=== PATIENT | male | born 1985 | race African-American/Black ===

== ENCOUNTER 2017-12-03 10:43 | Emergency (ER) | payer OTHER ==
[~2017-12-03] VITALS: Ht 175.3 cm; Wt 72.6 kg
--- NOTE | 2017-12-03 10:50 | NUR ---
PATIENT TO ED DT WORSENING FEELINGS OF ANGER, INTENT OF VERBALLY AND PHYSICALLY ABUSING OTHER. PATIENT DENIES SI. SKIN IS WARM TO TOUCH AND NON DIAPHORETIC,. PATIENT IS AFEBRILE. VSS
--- NOTE | 2017-12-03 11:23 | NUR ---
NAOMIE ALONSO AT BEDSIDE
[2017-12-03 11:28] LABS: BASOPHILS % (AUTO) 0.7 % (0.0-2.0); EOSINOPHILS % (AUTO) 1.9 % (0.0-6.0); HEMATOCRIT 46 % (39-51); HEMOGLOBIN 15.7 g/dL (13.5-17.5); LYMPHOCYTES # (AUTO) 1.6 /CMM (0.8-4.8); LYMPHOCYTES % (AUTO) 33.5 % (20.0-44.0); MEAN CORPUSCULAR HGB CONC 34 g/dl (31.0-36.0); MEAN CORPUSCULAR VOLUME 86 fL (80-96); MONOCYTES # (AUTO) 0.3 /CMM (0.1-1.30); MONOCYTES % (AUTO) 5.3 % (2.0-12.0); NEUTROPHILS # (AUTO) 2.9 /CMM (1.8-8.9); NEUTROPHILS % (AUTO) 58.6 % (43.0-81.0); PLATELET COUNT (AUTO) 132 /CMM (150-450); RDW COEFFICIENT OF VARIATION 11.9 (11.5-15.0); RED BLOOD CELL COUNT(AUTO) 5.34 MIL/uL (4.5-6.0); WHITE BLOOD COUNT (AUTO) 4.9 K/uL (4.3-11.0)
[2017-12-03 11:36] LABS: CALCIUM, SERUM 9.5 mg/dL (8.5-10.1); CARBON DIOXIDE 31 mmol/L (21-32); CHLORIDE 106 mmol/L (98-107); CREATININE 1.1 mg/dL (0.6-1.3); GLUCOSE 88 mg/dL (74-106); POTASSIUM 4.3 mmol/L (3.5-5.1); SODIUM SERUM 141 mmol/L (136-145); UREA NITROGEN, BLOOD 15 mg/dL (7-18)
[2017-12-03 11:49] LABS: ALANINE AMINOTRANSFERASE 19 U/L (12-78); ALBUMIN 4.3 g/dL (3.4-5.0); ALKALINE PHOSPHATASE 55 U/L (46-116); ASPARTATE AMINOTRANSFERASE 22 U/L (15-37); BILIRUBIN,DIRECT 0.2 mg/dL (0.0-0.2); BILIRUBIN,TOTAL 1.1 mg/dL (0.2-1.0); TOTAL PROTEIN, SERUM 7.5 g/dL (6.4-8.2)
[2017-12-03 11:50] LABS: ACETAMINOPHEN < 2 ug/ml (10-30); ALCOHOL, BLOOD < 3 mg/dL (0-0); SALICYLATE 1.7 mg/dL (2.8-20.0)
[2017-12-03 12:34] LABS: APPEARANCE,URINE Clear (CLEAR); BILIRUBIN,URINE SMALL (NEGATIVE); BLOOD, URINE Trace-intact Ery/uL (NEGATIVE); COLOR,URINE Yellow (YELLOW); KETONES,URINE Negative (NEGATIVE); LEUKOCYTE ESTERASE ,URINE Negative (NEGATIVE); NITRITE, URINE Negative (NEGATIVE); PH,URINE 6.5 (5.0-8.0); PROTEIN,URINE 30 mg/dl (NEGATIVE); UGLUCOSE Negative (NEGATIVE)
[2017-12-03 12:39] LABS: BACTERIA,URINE Rare /HPF (None Seen); SQUAMOUS EPITHELIAL CELL,UR Few /HPF (None Seen); WBC,URINE 0-2 /HPF (0-3)
--- NOTE | 2017-12-03 17:18 | NUR ---
ESEQUIEL CALLED IN REGARDS TO PT TRANSFER - INFORMED THAT I SPOKE WITH LOS AT 1620 - STILL WAITING ON BED FROM [facility]
--- NOTE | 2017-12-03 17:39 | NUR ---
CALLED FOR MEAL TRAY - REGULAR DIET
--- NOTE | 2017-12-03 21:07 | NUR ---
SPOKE TO CHARGE NURSE RN DANAE, FROM [facility] REGARDING TOX URINE RESULTS. PER DANAE TO CALL BACK AT 9:30PM FOR NURSE TO NURSE REPORT THEN WILL ASSIGN A BED.
--- NOTE | 2017-12-03 21:48 | NUR ---
SPOKE TO GAVIN GARCIA FROM [facility]. [address]
--- NOTE | 2017-12-03 21:59 | NUR ---
SET UP BLS RIG WITH SAVANNAH ALATORRE [id number] - TRIP# [id number]
--- NOTE | 2017-12-03 22:15 | NUR ---
ETA UPDATED TO MIDNIGHT
[2017-12-03 23:41] VITALS: BP 138/88
--- NOTE | 2017-12-03 23:43 | NUR ---
REPORT GIVEN TO EMT FROM [place] [id number] FOR ADITYA. PT AWARE OF TRANSFER. PT WITH ALL PERSONAL BELONGINGS. PT VSS. EMT WITH ALL TRANSFER PAPERS. PT TO BE TRANSFERRED VIA [facility] TO [facility].
== END 2017-12-03 23:47 | disposition short-term general hospital (02) ==
LOC: ER 10:46
DX: F23 Brief psychotic disorder (principal); F17.200 Nicotine dependence, unspecified, uncomplicated; Z60.2 Problems related to living alone
CPT/HCPCS: 36415; 80048-TC; 80076-TC; 80305; 81000-TC; 85025-TC; A4606; G0480; J7030; Z7610

== ENCOUNTER 2018-01-31 19:29 | Emergency (ER) | payer OTHER ==
[~2018-01-31] VITALS: Ht 175.3 cm; Wt 72.6 kg
[2018-01-31 19:50] VITALS: BP 129/81
[2018-01-31 21:16] LABS: APPEARANCE,URINE Slightly Cloudy (CLEAR); BILIRUBIN,URINE SMALL (NEGATIVE); BLOOD, URINE Moderate Ery/uL (NEGATIVE); COLOR,URINE Amber (YELLOW); KETONES,URINE Negative (NEGATIVE); LEUKOCYTE ESTERASE ,URINE Negative (NEGATIVE); NITRITE, URINE Negative (NEGATIVE); PROTEIN,URINE 30 mg/dl (NEGATIVE); UGLUCOSE Negative (NEGATIVE)
[2018-01-31 21:23] LABS: RBC,URINE 51-80 /HPF (0-2); WBC,URINE 0-2 /HPF (0-3)
[2018-01-31 21:24] LABS: BACTERIA,URINE Few /HPF (None Seen); SQUAMOUS EPITHELIAL CELL,UR Few /HPF (None Seen)
== END 2018-01-31 21:34 | disposition home or self-care (01) ==
LOC: ER 19:30
DX: N50.812 Left testicular pain (principal); N50.811 Right testicular pain; F12.90 Cannabis use, unspecified, uncomplicated; Z60.2 Problems related to living alone
CPT/HCPCS: 81000-TC; A4606; Z7610

== ENCOUNTER → 2019-10-27 | Emergency (ER) | payer OTHER ==
[~2019-10-27] VITALS: Ht 175.3 cm; Wt 72.6 kg
[~2019-10-27] MED LIST: LORAZEPAM 1 MG TABLET ONE; LORAZEPAM 1 MG TABLET PO ONE
--- NOTE | 2019-10-27 01:15 | NUR ---
PT BIBRA FOR PSYCH EVAL. PT CALM AND COOPERATIVE. PT AAOX4, VSS, RESPIRATIONS EVEN AND UNLABORED ON RA W/ NAD NOTED. PT CONNECTED TO THE MONITOR AND POX
[2019-10-27 01:46] LABS: BASOPHILS % (AUTO) 0.3 % (0.0-2.0); HEMATOCRIT 44 % (39-51); HEMOGLOBIN 15.2 g/dL (13.5-17.5); LYMPHOCYTES # (AUTO) 1.8 /CMM (0.8-4.8); LYMPHOCYTES % (AUTO) 19.2 % (20.0-44.0); MEAN CORPUSCULAR HGB CONC 34 g/dl (31.0-36.0); MEAN CORPUSCULAR VOLUME 88 fL (80-96); MONOCYTES # (AUTO) 0.5 /CMM (0.1-1.30); MONOCYTES % (AUTO) 5.5 % (2.0-12.0); NEUTROPHILS # (AUTO) 7.2 /CMM (1.8-8.9); PLATELET COUNT (AUTO) 141 /CMM (150-450); RED BLOOD CELL COUNT(AUTO) 5.03 MIL/uL (4.5-6.0); WHITE BLOOD COUNT (AUTO) 9.6 K/uL (4.3-11.0)
[2019-10-27 02:11] LABS: CALCIUM, SERUM 9.2 mg/dL (8.5-10.1); CREATININE 1.3 mg/dL (0.6-1.3); POTASSIUM 3.4 mmol/L (3.5-5.1)
[2019-10-27 02:22] LABS: ALBUMIN 4.4 g/dL (3.4-5.0); BILIRUBIN,DIRECT 0.4 mg/dL (0.0-0.2); BILIRUBIN,TOTAL 1.6 mg/dL (0.2-1.0); TOTAL PROTEIN, SERUM 7.6 g/dL (6.4-8.2)
--- NOTE | 2019-10-27 03:00 | NUR ---
PT RESTING COMFORTABLY IN BED. VSS. NO ACUTE DISTRESS NOTED. WILL CONTINUE TO MONITOR
[2019-10-27 06:04] VITALS: BP 112/68
--- NOTE | 2019-10-27 06:04 | NUR ---
PT RESTING COMFORTABLY IN BED. VSS. NO ACUTE DISTRESS NOTED. WILL CONTINUE TO MONITOR
--- NOTE | 2019-10-27 07:03 | NUR ---
PATIENT REFUSING VITAL SIGNS, ASKING FOR PAIN MEDICATIONS.
--- NOTE | 2019-10-27 07:06 | NUR ---
PATIENT IS ASKING FOR PAIN MEDICATION. PATIENT IS RUDE AND CURSING AT MORE THAN ONE NURSING STAFF. PATIENT USING "N" WORD AND DEGRADING STAFF. PATIENT IS AMBULATORY.
--- NOTE | 2019-10-27 07:22 | NUR ---
PATIENT IS ESCORTED BY SECURITY.
== END | disposition home or self-care (01) ==
LOC: ER 01:11
DX: F15.10 Other stimulant abuse, uncomplicated (principal); G47.00 Insomnia, unspecified; R07.89 Other chest pain; R94.31 Abnormal electrocardiogram [ECG] [EKG]; F20.9 Schizophrenia, unspecified; F17.200 Nicotine dependence, unspecified, uncomplicated; Z60.2 Problems related to living alone
CPT/HCPCS: 36415; 71045-TC; 80048-TC; 80076-TC; 83735-TC; 84484-TC; 85025-TC

== ENCOUNTER 2019-11-24 01:00 | Emergency (ER) | payer OTHER ==
[~2019-11-24] VITALS: Ht 175.3 cm; Wt 72.6 kg
--- NOTE | 2019-11-24 01:04 | NUR ---
TO ER BED 14 AMBULATORY C/O SI WITH PLAN TO SLICE WRIST WITH A KNIFE. HEARING VOICES TELLING ME TO KILL MYSELF. ADMITS TO METH USE YESTERDAY. PT CALM AND COOPERATIVE. PLACE PT ON HOSPITAL GOWN, ALL BELONGINGS PLACE IN PT BELONGING BAGS AND PLACED IN LOCKED HOSPITAL LOCKER. 1:1 SITTER AT BEDSIDE FOR PT SAFETY.
--- NOTE | 2019-11-24 01:05 | NUR ---
URINE SAMPLE COLLECTED AND SENT TO LAB.
[2019-11-24 01:28] LABS: APPEARANCE,URINE Clear (CLEAR); BILIRUBIN,URINE Negative (NEGATIVE); BLOOD, URINE Trace-lysed Ery/uL (NEGATIVE); COLOR,URINE Amber (YELLOW); KETONES,URINE Trace (NEGATIVE); LEUKOCYTE ESTERASE ,URINE Negative (NEGATIVE); NITRITE, URINE Negative (NEGATIVE); PROTEIN,URINE 30 mg/dl (NEGATIVE); UGLUCOSE Negative (NEGATIVE)
[2019-11-24] MEDS ORDERED: OLANZAPINE 5 MG TABLET PO ONE (01:30)
--- NOTE | 2019-11-24 01:31 | NUR ---
BIOASSAYIST AT BEDSIDE FOR BLOOD DRAW.
[2019-11-24 01:34] LABS: BASOPHILS # (AUTO) 0.1 /CMM (0.0-0.2); BASOPHILS % (AUTO) 1.2 % (0.0-2.0); EOSINOPHILS % (AUTO) 8.8 % (0.0-6.0); HEMATOCRIT 47 % (39-51); HEMOGLOBIN 16.1 g/dL (13.5-17.5); LYMPHOCYTES # (AUTO) 3.3 /CMM (0.8-4.8); LYMPHOCYTES % (AUTO) 49.2 % (20.0-44.0); MEAN CORPUSCULAR HGB CONC 34 g/dl (31.0-36.0); MEAN CORPUSCULAR VOLUME 87 fL (80-96); MONOCYTES # (AUTO) 0.4 /CMM (0.1-1.30); MONOCYTES % (AUTO) 6.6 % (2.0-12.0); NEUTROPHILS # (AUTO) 2.3 /CMM (1.8-8.9); NEUTROPHILS % (AUTO) 34.2 % (43.0-81.0); PLATELET COUNT (AUTO) 153 /CMM (150-450); RED BLOOD CELL COUNT(AUTO) 5.41 MIL/uL (4.5-6.0); WHITE BLOOD COUNT (AUTO) 6.7 K/uL (4.3-11.0)
[2019-11-24 01:41] LABS: CALCIUM, SERUM 9.2 mg/dL (8.5-10.1); CREATININE 1.3 mg/dL (0.6-1.3); POTASSIUM 3.2 mmol/L (3.5-5.1)
[2019-11-24] MEDS ORDERED: OLANZAPINE 5 MG TABLET ONE (01:51)
[2019-11-24 01:53] LABS: ALBUMIN 4.5 g/dL (3.4-5.0); BILIRUBIN,DIRECT 0.2 mg/dL (0.0-0.2); BILIRUBIN,TOTAL 0.6 mg/dL (0.2-1.0); TOTAL PROTEIN, SERUM 7.9 g/dL (6.4-8.2)
[2019-11-24 02:05] LABS: SALICYLATE 1.9 mg/dL (2.8-20.0)
[2019-11-24 02:05] LABS: BACTERIA,URINE None seen /HPF (None Seen); MUCUS,URINE Many /LPF (None Seen); RBC,URINE 0-2 /HPF (0-2); SQUAMOUS EPITHELIAL CELL,UR Few /HPF (None Seen); WBC,URINE 0-2 /HPF (0-3)
--- NOTE | 2019-11-24 02:42 | NUR ---
patient asleep. vss.
--- NOTE | 2019-11-24 03:15 | NUR ---
Call from [facility] intake. Unable to accept patient until K normal. Dr viramontes notified
[2019-11-24] MEDS ORDERED: POTASSIUM CHLORIDE 20 MEQ TAB.PRT.SR PO ONE ×2 (03:30→04:14)
--- NOTE | 2019-11-24 04:49 | NUR ---
Patient is resting comfortably in bed with eyes closed. Easily aroused. VSS.
--- NOTE | 2019-11-24 05:59 | NUR ---
PT RESTING COMFORTABLY. VSS.
--- NOTE | 2019-11-24 06:14 | NUR ---
Pt accepted to [facility] by Dr Israel. Unit 2. # for report [phone]. [facility] ETA 30 minutes.
[2019-11-24 07:01] VITALS: BP 109/78
--- NOTE | 2019-11-24 07:12 | NUR ---
REPORT GIVEN TO ISIDORO ALONSO FOR ADITYA AND REPORT GIVEN TO PRIMER 38.
== END 2019-11-24 07:17 ==
LOC: ER 01:02
DX: R45.851 Suicidal ideations (principal); R44.0 Auditory hallucinations; F19.10 Other psychoactive substance abuse, uncomplicated; Z60.2 Problems related to living alone
CPT/HCPCS: 36415; 80048; 80076; 80305; 80307; 80329; 81001; 85025; 99285; G0480; 81000-TC

== ENCOUNTER 2019-12-02 22:30 | Emergency (ER) | payer OTHER ==
[~2019-12-02] VITALS: Ht 175.3 cm; Wt 72.6 kg
--- NOTE | 2019-12-02 22:50 | NUR ---
BIBS AND AMBULATORY TO BED 9. PT ALERTAND RESPONSIVE. NAD. C/O HEARING ALL KIND OF VOICES FOR THE PAST FEW DAYS. PT REFUSED SI HOWEVER STATED HE MAY HURT OTHERS. PT WAS PLACED ON A FULL SI PRECAUTION. UNDER SUPERVISION OF A SITTER. URINE COLLECTED. KEPT PT WARM AND COMFORTABLE. WILL CONT TO MONITOR ,
--- NOTE | 2019-12-02 22:57 | NUR ---
AT THE BED SIDE
[2019-12-02 23:14] LABS: APPEARANCE,URINE Clear (CLEAR); BILIRUBIN,URINE SMALL (NEGATIVE); BLOOD, URINE Moderate Ery/uL (NEGATIVE); COLOR,URINE Yellow (YELLOW); KETONES,URINE 15 (NEGATIVE); LEUKOCYTE ESTERASE ,URINE Negative (NEGATIVE); NITRITE, URINE Negative (NEGATIVE); PH,URINE 5.5 (5.0-8.0); PROTEIN,URINE Negative (NEGATIVE); UGLUCOSE Negative (NEGATIVE); UROBILINOGEN,URINE 0.2 EU/dL (0.2)
[2019-12-02 23:16] LABS: BASOPHILS # (AUTO) 0.1 /CMM (0.0-0.2); BASOPHILS % (AUTO) 1.5 % (0.0-2.0); EOSINOPHILS % (AUTO) 2.1 % (0.0-6.0); HEMATOCRIT 46 % (39-51); HEMOGLOBIN 15.7 g/dL (13.5-17.5); LYMPHOCYTES # (AUTO) 1.8 /CMM (0.8-4.8); LYMPHOCYTES % (AUTO) 24.3 % (20.0-44.0); MEAN CORPUSCULAR HGB CONC 34 g/dl (31.0-36.0); MEAN CORPUSCULAR VOLUME 89 fL (80-96); MONOCYTES # (AUTO) 0.4 /CMM (0.1-1.30); MONOCYTES % (AUTO) 5.7 % (2.0-12.0); NEUTROPHILS # (AUTO) 4.9 /CMM (1.8-8.9); NEUTROPHILS % (AUTO) 66.4 % (43.0-81.0); PLATELET COUNT (AUTO) 164 /CMM (150-450); RED BLOOD CELL COUNT(AUTO) 5.25 MIL/uL (4.5-6.0); WHITE BLOOD COUNT (AUTO) 7.4 K/uL (4.3-11.0)
[2019-12-02 23:22] LABS: CALCIUM, SERUM 9.1 mg/dL (8.5-10.1); CARBON DIOXIDE 34 mmol/L (21-32); CHLORIDE 104 mmol/L (98-107); CREATININE 1.2 mg/dL (0.6-1.3); GLUCOSE 109 mg/dL (74-106); POTASSIUM 3.4 mmol/L (3.5-5.1); SODIUM SERUM 141 mmol/L (136-145); UREA NITROGEN, BLOOD 15 mg/dL (7-18)
[2019-12-02 23:27] LABS: ALANINE AMINOTRANSFERASE 32 U/L (12-78); ALBUMIN 4.3 g/dL (3.4-5.0); ALCOHOL, BLOOD < 3 mg/dL (0-0); ALKALINE PHOSPHATASE 60 U/L (46-116); ASPARTATE AMINOTRANSFERASE 26 U/L (15-37); BILIRUBIN,DIRECT 0.2 mg/dL (0.0-0.2); BILIRUBIN,TOTAL 0.7 mg/dL (0.2-1.0); TOTAL PROTEIN, SERUM 7.4 g/dL (6.4-8.2)
[2019-12-02 23:28] LABS: ACETAMINOPHEN 0 ug/ml (10-30); SALICYLATE 1.1 mg/dL (2.8-20.0)
[2019-12-03 00:07] LABS: BACTERIA,URINE Few /HPF (None Seen); MUCUS,URINE Moderate /LPF (None Seen); SQUAMOUS EPITHELIAL CELL,UR Rare /HPF (None Seen); WBC,URINE 0-2 /HPF (0-3)
--- NOTE | 2019-12-03 02:23 | NUR ---
Patient is resting comfortably in bed with eyes closed. Easily aroused. VSS. Will cont to monitor,
--- NOTE | 2019-12-03 03:52 | NUR ---
PATIENT IS SLEEPING. PT IS AROUSABLE THROUGH TACTILE AND VERBAL STIMULI. CONNECTED TO MONITOR. SITTER AT BEDSIDE.
--- NOTE | 2019-12-03 05:37 | NUR ---
PT RESTING COMFORTABLY IN BED. VITAL SIGNS STABLE. SITTER AT BEDSIDE. WILL CONTINUE TO MONITOR
--- NOTE | 2019-12-03 08:35 | NUR ---
CALLED SAYRA FOR EVAL AND PLACEMENT.
--- NOTE | 2019-12-03 08:52 | NUR ---
TRU contacted Chucky at [facility] to initiate voluntary hospitalization. Per Chucky, they will have a bed for the pt. TRU faxed clinicals to [facility] intake dept.
--- NOTE | 2019-12-03 09:45 | NUR ---
TRU followed up with Christina at [facility] intake and was informed pt has been referred to [facility] nursing supervisor benzene refining since pt is on the "do not admit" list at [place]. Clinicals are being reviewed at this time. Christina to f/u with SW once pt is accepted. DIRECTOR OF PHYSICAL SECURITY updated ED CRN Gener.
--- NOTE | 2019-12-03 12:50 | NUR ---
BENCH REPAIR TECHNICIAN was informed by Christina at [facility] intake, pt has been accepted at [facility]. Call report after 3PM [phone]. Accepting Dr. Israel/Dr. Russell. updated ELE Bhatti in ED.
--- NOTE | 2019-12-03 13:18 | NUR ---
PT STATED HE IS NOT SUICIDAL AND WANTS TO BE DISCHARGE. MD AWARE.
--- NOTE | 2019-12-03 13:26 | NUR ---
PT DENIES SI/HI. DR STODDARD MADE AWARE. MEDICALLY CLEARED. VERBALLY DISCHARGE FROM ED. STABLE CONDITION.
[2019-12-03 13:31] VITALS: BP 117/66
== END 2019-12-03 13:31 | disposition home or self-care (01) ==
LOC: ER 22:32
DX: F19.10 Other psychoactive substance abuse, uncomplicated (principal); R45.850 Homicidal ideations; R44.1 Visual hallucinations
CPT/HCPCS: 36415; 80048; 80076; 80305; 80307; 80329; 81001; 85025; 99285; G0480; 81000-TC

== ENCOUNTER 2019-12-05 21:57 | Emergency (ER) | payer OTHER ==
[~2019-12-05] VITALS: Ht 175.3 cm; Wt 72.6 kg
--- NOTE | 2019-12-05 22:39 | NUR ---
PT BIBSELF STATES HEARING VOICES "THE VOCIES ARE TELLING ME TO HURT MOTHER FUCKERS" DENIES SIPT AOX4 RR EVEN AND UNLABORED. NO SOB NOTED. NO NVD AT THIS TIME. NO ACUTE DISTRESS NOTED. PT WAITING FOR MD DUQUE.
--- NOTE | 2019-12-05 22:40 | NUR ---
URINE COLLECTED. SENT TO LAB
--- NOTE | 2019-12-05 22:50 | NUR ---
BED MACHINE OPERATOR AT BEDSIDE FOR BLOOD DRAW
[2019-12-05] MEDS ORDERED: OLANZAPINE 5 MG TABLET ONE (22:51)
[2019-12-05 22:53] LABS: APPEARANCE,URINE Clear (CLEAR); BILIRUBIN,URINE Negative (NEGATIVE); BLOOD, URINE Trace-lysed Ery/uL (NEGATIVE); COLOR,URINE Dark (YELLOW); KETONES,URINE Trace (NEGATIVE); LEUKOCYTE ESTERASE ,URINE Negative (NEGATIVE); NITRITE, URINE Negative (NEGATIVE); PROTEIN,URINE 30 mg/dl (NEGATIVE); UGLUCOSE Negative (NEGATIVE)
[2019-12-05] MEDS ORDERED: OLANZAPINE 5 MG TABLET PO ONE (23:00)
[2019-12-05 23:01] LABS: BASOPHILS # (AUTO) 0.1 /CMM (0.0-0.2); BASOPHILS % (AUTO) 0.9 % (0.0-2.0); EOSINOPHILS % (AUTO) 6.8 % (0.0-6.0); HEMATOCRIT 49 % (39-51); HEMOGLOBIN 16.6 g/dL (13.5-17.5); LYMPHOCYTES # (AUTO) 2.2 /CMM (0.8-4.8); LYMPHOCYTES % (AUTO) 35.2 % (20.0-44.0); MEAN CORPUSCULAR HGB CONC 34 g/dl (31.0-36.0); MEAN CORPUSCULAR VOLUME 89 fL (80-96); MONOCYTES # (AUTO) 0.4 /CMM (0.1-1.30); MONOCYTES % (AUTO) 5.6 % (2.0-12.0); NEUTROPHILS # (AUTO) 3.2 /CMM (1.8-8.9); NEUTROPHILS % (AUTO) 51.5 % (43.0-81.0); PLATELET COUNT (AUTO) 178 /CMM (150-450); WHITE BLOOD COUNT (AUTO) 6.2 K/uL (4.3-11.0)
[2019-12-05 23:07] LABS: BACTERIA,URINE Few /HPF (None Seen); MUCUS,URINE Many /LPF (None Seen); SQUAMOUS EPITHELIAL CELL,UR Rare /HPF (None Seen)
[2019-12-05 23:08] LABS: CALCIUM, SERUM 9.2 mg/dL (8.5-10.1); CARBON DIOXIDE 35 mmol/L (21-32); CHLORIDE 101 mmol/L (98-107); CREATININE 1.4 mg/dL (0.6-1.3); GLUCOSE 92 mg/dL (74-106); POTASSIUM 3.7 mmol/L (3.5-5.1); SODIUM SERUM 140 mmol/L (136-145); UREA NITROGEN, BLOOD 18 mg/dL (7-18)
[2019-12-05 23:13] LABS: ACETAMINOPHEN 1 ug/ml (10-30); ALANINE AMINOTRANSFERASE 29 U/L (12-78); ALBUMIN 4.6 g/dL (3.4-5.0); ALCOHOL, BLOOD < 3 mg/dL (0-0); ALKALINE PHOSPHATASE 67 U/L (46-116); ASPARTATE AMINOTRANSFERASE 22 U/L (15-37); BILIRUBIN,DIRECT 0.1 mg/dL (0.0-0.2); BILIRUBIN,TOTAL 0.5 mg/dL (0.2-1.0)
[2019-12-05 23:14] LABS: SALICYLATE 2.1 mg/dL (2.8-20.0)
--- NOTE | 2019-12-06 04:32 | NUR ---
accepted at [facility]. : Dr. logan Report: [phone] ext [phone] or [phone] per [facility] intake to give report after 9am.
--- NOTE | 2019-12-06 04:43 | NUR ---
PT RESTING COMFORTABLY IN BED. VITAL SIGNS STABLE. SITTER AT BEDSIDE. WILL CONTINUE TO MONITOR
--- NOTE | 2019-12-06 05:42 | NUR ---
CALLED CALL THE CAR FOR TRANSPOTATION. RESERVATION #[id number] [facility] ETA 1100
--- NOTE | 2019-12-06 09:40 | NUR ---
Patient asleep but arousable non distress @ this time continue to monitor
--- NOTE | 2019-12-06 10:08 | NUR ---
ARYA CALLED FROM [facility] ROOM [address]-B ACCEPTING MD IS HEIDI. PLEASE CALL [phone] FOR REPORT. TY
--- NOTE | 2019-12-06 10:17 | NUR ---
Kennel Keeper Consult was requested by Emergency Room staff for this pt who states he has hallucinations. Pt is a 34 year old male who brought himself to the Emergency Room stating that he has been hearing voices telling him to hurt other people. Pt appeared to be in a depressed mood and presented with an agitated affect. Pt stated that he was feeling frustrated that everyone in the Emergency Room has been asking him the same questions. Pt stated that he is not homeless and in fact lives in an apartment in [place] with his kitten. SW asked if anyone else lives with him and he stated that someone does but they are not there at the moment. SW asked him who lives with him and the pt stated that the SW was asking too many personal questions. Pt stated that he has a sister who is his support system. Pt expressed his concern with these voices in his head and states that he does feel nervous that he will hurt someone. Pt agreed to be voluntarily admitted to a psychiatric hospital. Plan: Pt was accepted to [facility] in [place] and will be discharged there at around 1100 on a voluntary hold.
--- NOTE | 2019-12-06 11:12 | NUR ---
PEBBLES CALLED FROM [facility] NEW ETA IS 30 MINS.
--- NOTE | 2019-12-06 12:00 | NUR ---
Patient awake noted ambulatory stated would like to talk to MD patient wants to go home ,patient encourage to stay and waiting for [facility]
--- NOTE | 2019-12-06 13:07 | NUR ---
Patient awake alert would to go home he stated he wants to take care and see his kitten ,encourage to call friend declined ,[facility] here for transfer he refused to go ,Md aware patient awake alert non distress denies SI denies stated he will follow up to his PMD .
[2019-12-06 13:37] VITALS: BP 125/66
== END 2019-12-06 13:10 | disposition home or self-care (01) ==
LOC: ER 21:57
DX: R45.850 Homicidal ideations (principal); F20.9 Schizophrenia, unspecified; F17.200 Nicotine dependence, unspecified, uncomplicated
CPT/HCPCS: 36415; 80048; 80076; 80305; 80307; 80329; 81001; 85025; 99285; G0480; 81000-TC

== ENCOUNTER 2019-12-14 19:05 | Emergency (ER) | payer OTHER ==
[~2019-12-14] VITALS: Ht 180.3 cm; Wt 74.8 kg
--- NOTE | 2019-12-14 19:13 | NUR ---
PT BIBRA 60 C/O SI TO JUMP OFF BRIDGE. -HI. PT PLACED IN GOWN, ON MONITOR AND PULSE OX. VSS. BELONINGS PLACED IN LOCKER. PT DENIES PAIN, RR EVEN AND UNLABORED. SITTER AT BEDSIDE. MD AT BEDSIDE FOR EVAL.
--- NOTE | 2019-12-14 19:20 | NUR ---
URINE COLLECTED AND SENT TO LAB
[2019-12-14 19:23] LABS: APPEARANCE,URINE Clear (CLEAR); BILIRUBIN,URINE Negative (NEGATIVE); BLOOD, URINE Moderate Ery/uL (NEGATIVE); COLOR,URINE Other (YELLOW); KETONES,URINE Negative (NEGATIVE); LEUKOCYTE ESTERASE ,URINE Negative (NEGATIVE); NITRITE, URINE Negative (NEGATIVE); PH,URINE 5.5 (5.0-8.0); PROTEIN,URINE Negative (NEGATIVE); UGLUCOSE Negative (NEGATIVE); UROBILINOGEN,URINE 0.2 EU/dL (0.2)
--- NOTE | 2019-12-14 19:32 | NUR ---
CASSANDRA DEVELOPER AT BEDSIDE FOR LABS.
[2019-12-14 19:37] LABS: BACTERIA,URINE Few /HPF (None Seen); MUCUS,URINE Moderate /LPF (None Seen); SQUAMOUS EPITHELIAL CELL,UR Few /HPF (None Seen); WBC,URINE 0-2 /HPF (0-3)
--- NOTE | 2019-12-14 19:54 | NUR ---
PATIENT'S BELONGINGS REMOVED AND PLACED INTO A LOCKED LOCKER. PATIENT IS CHANGED INTO A GOWN. SITTER AT BEDSIDE.
[2019-12-14] MEDS ORDERED: LORAZEPAM INJ 2 MG/ML VIAL ONE (19:56)
[2019-12-14 19:58] LABS: BASOPHILS % (AUTO) 0.7 % (0.0-2.0); EOSINOPHILS % (AUTO) 3.3 % (0.0-6.0); HEMATOCRIT 45 % (39-51); LYMPHOCYTES # (AUTO) 2.1 /CMM (0.8-4.8); LYMPHOCYTES % (AUTO) 30.4 % (20.0-44.0); MEAN CORPUSCULAR HGB CONC 34 g/dl (31.0-36.0); MEAN CORPUSCULAR VOLUME 89 fL (80-96); MONOCYTES # (AUTO) 0.4 /CMM (0.1-1.30); MONOCYTES % (AUTO) 5.5 % (2.0-12.0); NEUTROPHILS # (AUTO) 4.1 /CMM (1.8-8.9); NEUTROPHILS % (AUTO) 60.1 % (43.0-81.0); PLATELET COUNT (AUTO) 164 /CMM (150-450); WHITE BLOOD COUNT (AUTO) 6.9 K/uL (4.3-11.0)
[2019-12-14] MEDS ORDERED: LORAZEPAM INJ 2 MG/ML VIAL IM ONE (20:00)
[2019-12-14 20:06] LABS: CALCIUM, SERUM 8.9 mg/dL (8.5-10.1); CARBON DIOXIDE 28 mmol/L (21-32); CHLORIDE 101 mmol/L (98-107); CREATININE 1.3 mg/dL (0.6-1.3); GLUCOSE 131 mg/dL (74-106); POTASSIUM 3.4 mmol/L (3.5-5.1); SODIUM SERUM 137 mmol/L (136-145); UREA NITROGEN, BLOOD 16 mg/dL (7-18)
[2019-12-14 20:10] LABS: ALANINE AMINOTRANSFERASE 39 U/L (12-78); ALBUMIN 4.2 g/dL (3.4-5.0); ALCOHOL, BLOOD < 3 mg/dL (0-0); ALKALINE PHOSPHATASE 60 U/L (46-116); ASPARTATE AMINOTRANSFERASE 30 U/L (15-37); BILIRUBIN,DIRECT 0.2 mg/dL (0.0-0.2); TOTAL PROTEIN, SERUM 7.3 g/dL (6.4-8.2)
[2019-12-14 20:13] LABS: ACETAMINOPHEN 0 ug/ml (10-30); SALICYLATE 0.2 mg/dL (2.8-20.0)
--- NOTE | 2019-12-14 20:15 | NUR ---
PT PROVIDED WITH BLANKET AND FOOD.
--- NOTE | 2019-12-14 21:17 | NUR ---
PT IN BED WATCHING TV. SITTER AT BEDSIDE.
--- NOTE | 2019-12-14 22:32 | NUR ---
CLINICAL INFORMATION FAXED TO [facility]
--- NOTE | 2019-12-14 22:55 | NUR ---
PER [facility], NO BEDS AVAILABLE AT THIS TIME
--- NOTE | 2019-12-14 23:56 | NUR ---
PER [facility], NO BEDS AVAILABLE AT THIS TIME
--- NOTE | 2019-12-15 01:36 | NUR ---
PT ASLEEP/ VSS.
--- NOTE | 2019-12-15 03:44 | NUR ---
FA[facility]ED CLINICALS TO [facility]
--- NOTE | 2019-12-15 04:21 | NUR ---
PT RESTING COMFORTABLY IN BED. VITAL SIGNS STABLE. NO ACUTE DISTRESS NOTED AT THIS TIME. SITTER STILL AT BEDSIDE. WILL CONTINUE TO MONITOR
--- NOTE | 2019-12-15 06:40 | NUR ---
PT PROVIDED WITH BLANKET. VSS.
--- NOTE | 2019-12-15 07:03 | NUR ---
LEFT VOICE MESSAGE FOR REG DIET WITH NUTRITION.
--- NOTE | 2019-12-15 09:01 | NUR ---
Pt reevaluated by Dr. Blanc. Pt denies any suicidal or homicidal ideation.
[2019-12-15 09:02] VITALS: BP 121/70
--- NOTE | 2019-12-15 09:02 | NUR ---
PT. VERBALIZED UNDERSTANDING OF AFTERCARE INSTRUCTIONS.Patient discharged to home in stable condition. Written and verbal after care instructions given. Patient verbalizes understanding of instruction.
== END 2019-12-15 09:03 | disposition home or self-care (01) ==
LOC: ER 19:12
DX: F19.959 Other psychoactive substance use, unspecified with psychoactive substance-induced psychotic disorder, unspecified (principal); R45.851 Suicidal ideations; F15.10 Other stimulant abuse, uncomplicated; F12.10 Cannabis abuse, uncomplicated; F20.9 Schizophrenia, unspecified; F31.9 Bipolar disorder, unspecified; R00.0 Tachycardia, unspecified; R45.1 Restlessness and agitation; R41.82 Altered mental status, unspecified
CPT/HCPCS: 36415; 80048; 80076; 80305; 80307; 80329; 81001; 85025; 96372; 99285; G0480; J2060; 81000-TC

== ENCOUNTER 2019-12-15 18:05 | Emergency (ER) | payer OTHER ==
[~2019-12-15] VITALS: Ht 170.2 cm; Wt 63.5 kg
--- NOTE | 2019-12-15 18:10 | NUR ---
PT BIBRA TO ED BED 11, PER EMS REPORT, WAS AT A DEPARTMENT STORE PARKING LOT ACTING VERY ANXIOUS. ADMITS TO USING METH PRIOR TO EMS ARRIVAL. PT WAS SEEN AND DISCHARGE EARLIER TODAY. PT DENIES SI/HI UPON INITIAL ASSESSMENT. STABLE VITALS. AWAITING MD DUQUE.
[2019-12-15] MEDS ORDERED: OLANZAPINE 10 MG VIAL IM ONE ×5 (18:15→22:30)
--- NOTE | 2019-12-15 18:15 | NUR ---
SUE MALDONADO AT BEDSIDE FOR EVAL.
[2019-12-15] MEDS ORDERED: LORAZEPAM INJ 2 MG/ML VIAL ONE ×3 (18:22→22:03)
[2019-12-15] MEDS ORDERED: LORAZEPAM INJ 2 MG/ML VIAL IM ONE ×2 (18:30→22:30)
--- NOTE | 2019-12-15 18:39 | NUR ---
MEDICATED ORDERED. SEE EMAR.
--- NOTE | 2019-12-15 19:07 | NUR ---
REPORT GIVEN TO FREIDA ALONSO FOR ADITYA.
--- NOTE | 2019-12-15 20:18 | NUR ---
PATIENT IS ASLEEP. EASILY AROUSABLE. BREATHING EVENLY AND UNLABORED ON ROOM AIR. GIVEN BLANKET FOR COMFORT. CONNECTED TO MONITOR. SIDE RAILS UP FOR SAFETY. SITTER AT BEDSIDE.
--- NOTE | 2019-12-15 21:30 | NUR ---
PT HALLUCINATING AND WANDERING ER HALLWAY. CONSTANTLY NEEDS TO BE REORIENTED TO SURROUNDINGS. SAFETY PRECAUTIONS INITIATED. PT PLACED IN ROOM, SITTER STILL AT BEDSIDE. WILL CONTINUE TO MONITOR
--- NOTE | 2019-12-15 22:28 | NUR ---
PT REFUSED IM MEDICATIONS. JOEL HOLLIS AWARE.
[2019-12-15] MEDS ORDERED: LORAZEPAM 1 MG TABLET PO ONE (22:30)
[2019-12-15] MEDS ORDERED: OLANZAPINE 5 MG TABLET PO ONE (22:30)
[2019-12-15] MEDS ORDERED: LORAZEPAM 1 MG TABLET ONE (22:32)
[2019-12-15] MEDS ORDERED: OLANZAPINE 5 MG TABLET ONE (22:33)
--- NOTE | 2019-12-15 22:39 | NUR ---
DEGREASER OPERATOR AT BEDSIDE FOR BLOOD DRAW.
[2019-12-15 22:48] LABS: BASOPHILS # (AUTO) 0.1 /CMM (0.0-0.2); BASOPHILS % (AUTO) 0.8 % (0.0-2.0); EOSINOPHILS % (AUTO) 2.5 % (0.0-6.0); HEMATOCRIT 45 % (39-51); HEMOGLOBIN 15.4 g/dL (13.5-17.5); LYMPHOCYTES # (AUTO) 2.5 /CMM (0.8-4.8); LYMPHOCYTES % (AUTO) 35.3 % (20.0-44.0); MEAN CORPUSCULAR HGB CONC 34 g/dl (31.0-36.0); MEAN CORPUSCULAR VOLUME 87 fL (80-96); MONOCYTES # (AUTO) 0.4 /CMM (0.1-1.30); MONOCYTES % (AUTO) 5.6 % (2.0-12.0); NEUTROPHILS % (AUTO) 55.8 % (43.0-81.0); PLATELET COUNT (AUTO) 152 /CMM (150-450); RED BLOOD CELL COUNT(AUTO) 5.14 MIL/uL (4.5-6.0); WHITE BLOOD COUNT (AUTO) 7.2 K/uL (4.3-11.0)
[2019-12-15 22:56] LABS: CALCIUM, SERUM 9.1 mg/dL (8.5-10.1); CARBON DIOXIDE 29 mmol/L (21-32); CHLORIDE 105 mmol/L (98-107); CREATININE 1.3 mg/dL (0.6-1.3); GLUCOSE 94 mg/dL (74-106); POTASSIUM 3.5 mmol/L (3.5-5.1); SODIUM SERUM 140 mmol/L (136-145); UREA NITROGEN, BLOOD 15 mg/dL (7-18)
[2019-12-15 23:13] LABS: ALANINE AMINOTRANSFERASE 32 U/L (12-78); ALBUMIN 4.2 g/dL (3.4-5.0); ALCOHOL, BLOOD < 3 mg/dL (0-0); ALKALINE PHOSPHATASE 56 U/L (46-116); ASPARTATE AMINOTRANSFERASE 32 U/L (15-37); BILIRUBIN,DIRECT 0.2 mg/dL (0.0-0.2); BILIRUBIN,TOTAL 1.1 mg/dL (0.2-1.0); SALICYLATE < 0.2 mg/dL (2.8-20.0); TOTAL PROTEIN, SERUM 7.1 g/dL (6.4-8.2)
[2019-12-15 23:14] LABS: ACETAMINOPHEN 0 ug/ml (10-30)
--- NOTE | 2019-12-16 03:17 | NUR ---
PATIENT IS SLEEPING. EASILY AROUSABLE THROUGH VOICE AND TOUCH. NO SOB. BREATHING EVENLY AND UNLABORED ON ROOM AIR. CONNECTED TO MONITOR. SITTER AT BEDSIDE.
--- NOTE | 2019-12-16 04:27 | NUR ---
URINE COLLECTED AND SENT TO LAB.
[2019-12-16 04:43] LABS: APPEARANCE,URINE Clear (CLEAR); BILIRUBIN,URINE Negative (NEGATIVE); BLOOD, URINE Trace-intact Ery/uL (NEGATIVE); COLOR,URINE Yellow (YELLOW); KETONES,URINE Negative (NEGATIVE); LEUKOCYTE ESTERASE ,URINE Negative (NEGATIVE); NITRITE, URINE Negative (NEGATIVE); PROTEIN,URINE Negative (NEGATIVE); UGLUCOSE Negative (NEGATIVE); UROBILINOGEN,URINE 0.2 EU/dL (0.2)
[2019-12-16 04:51] LABS: BACTERIA,URINE Few /HPF (None Seen); WBC,URINE 0-2 /HPF (0-3)
[2019-12-16 04:52] LABS: MUCUS,URINE Few /LPF (None Seen); SQUAMOUS EPITHELIAL CELL,UR Rare /HPF (None Seen)
--- NOTE | 2019-12-16 07:14 | NUR ---
EVELYN FROM [facility]; CONFIMRED REC'D PACKET
--- NOTE | 2019-12-16 09:00 | NUR ---
Patient eyes close arousable non distress @ this time follows command, breakfast served appreciated sitter @ bedside .
--- NOTE | 2019-12-16 18:33 | NUR ---
CALLED [facility] FOR UPDATE. STATED NO BEDS UNTIL DISCHARGES TOMORROW MORNING.
--- NOTE | 2019-12-16 19:01 | NUR ---
TOOK OVER PT CARE. PT IN BED, PROVIDED WITH BLANKET. PT PLACED ON MONITOR AND PULSE OX. VSS. WILL COTNINUE TO MONITOR PT. PT DENIES PAIN.
--- NOTE | 2019-12-16 19:18 | NUR ---
PT PROVIDED WITH WATER AND FOOD. VSS. IN BED.
[2019-12-16] MEDS ORDERED: OLANZAPINE 10 MG VIAL IM ONE ×2 (19:30)
--- NOTE | 2019-12-16 22:27 | NUR ---
PATIENT IS SLEEPING. EASILY AROUSABLE BY TOUCH AND VOICE. CONNECTED TO THE MONITOR. PT IS BREATHING EVENLY AND UNLABORED ON ROOM AIR. SITTER AT BEDSIDE.
--- NOTE | 2019-12-17 01:07 | NUR ---
PATIENT IS SLEEPING. EASILY AROUSABLE. BREATHING EVENLY AND UNLABORED ON ROOM AIR. CONNECTED TO MONITOR. SITTER AT BEDSIDE.
--- NOTE | 2019-12-17 04:45 | NUR ---
PT RESTING COMFORTABLY IN BED. VITAL SIGNS STABLE. NO ACUTE DISTRESS NOTED AT THIS TIME. WILL CONTINUE TO MONITOR
--- NOTE | 2019-12-17 05:54 | NUR ---
PATIENT IS AWAKE AND RESTING. NOT IN ANY DISTRESS. BREATHING EVENLY AND UNLABORED ON ROOM AIR. CONNECTED TO THE MONITOR WITH SITTER AT BEDSIDE.
--- NOTE | 2019-12-17 06:16 | NUR ---
SITTER AT BEDSIDE.
--- NOTE | 2019-12-17 06:16 | NUR ---
PT ASLEEP. VSS.
--- NOTE | 2019-12-17 06:54 | NUR ---
SPOKE WITH EVELYN FROM [facility], STILL NO BEDS AVAILABLE AT THIS TIME
--- NOTE | 2019-12-17 08:38 | NUR ---
MANAGER QUANTITATIVE contacted Chucky at [facility] to f/u regarding bed availability. Per Chucky, they will have discharges at noon and will be able to accept pt after 12PM. MANAGER QUANTITATIVE updated ED CRN Gener with aforementioned information.
--- NOTE | 2019-12-17 10:12 | NUR ---
ACCEPTED BY XANDER SALINAS/KAYLA TO [facility],REPORT TO [phone] X [phone]
--- NOTE | 2019-12-17 10:21 | NUR ---
CALLED [facility] CALL THE CAR. CONFIRMATION NUMBER [id number]. WILL CALL BACK WITH AMBULANCE ETA AND INFO.
--- NOTE | 2019-12-17 10:26 | NUR ---
report given to sung ALONSO for rosaura
[2019-12-17 12:12] VITALS: BP 120/72
--- NOTE | 2019-12-17 12:14 | NUR ---
Patient Tranfers to outside Facility [facility] Physician:Dr. Levy Location:[facility] report given to Piper, left in stable condition, denies any pain at this time.
== END 2019-12-17 12:14 ==
LOC: ER 18:07
DX: R45.851 Suicidal ideations (principal); F28 Other psychotic disorder not due to a substance or known physiological condition; F15.10 Other stimulant abuse, uncomplicated; F17.200 Nicotine dependence, unspecified, uncomplicated; F20.9 Schizophrenia, unspecified; F31.9 Bipolar disorder, unspecified
CPT/HCPCS: 36415; 80048; 80076; 80305; 80307; 80329; 81001; 85025; 96372 ×3; 99285; G0480; J2060; J3490 ×3; 81000-TC

== ENCOUNTER 2019-12-28 20:00 | Emergency (ER) | payer OTHER ==
[~2019-12-28] VITALS: Ht 175.3 cm; Wt 72.6 kg
[2019-12-28 20:05] VITALS: BP 146/92
[2019-12-28] MEDS ORDERED: OLANZAPINE 5 MG TABLET ONE (20:15)
[2019-12-28] MEDS: OLANZAPINE 5 MG TABLET PO ONE (20:21)
== END 2019-12-28 20:23 | disposition home or self-care (01) ==
LOC: ER 20:05
DX: L21.0 Seborrhea capitis (principal); F28 Other psychotic disorder not due to a substance or known physiological condition; F20.9 Schizophrenia, unspecified; F31.9 Bipolar disorder, unspecified; F17.200 Nicotine dependence, unspecified, uncomplicated

== ENCOUNTER 2020-01-03 16:48 | Emergency (ER) | payer OTHER ==
[~2020-01-03] VITALS: Ht 175.3 cm; Wt 67.6 kg
--- NOTE | 2020-01-03 16:51 | NUR ---
SILVANO Long FROM [facility], C/O ANXIETY, NAUSEA AND HEADACHE, AWAKE X 2 DAYS, METH USE x 2 DAYS, TO ER BED 10, HOOKED TO MONITOR, CHANGED TO HOSP GOWN, WARM BLANKET PROVIDED, AWAITING MD DUQUE
--- NOTE | 2020-01-03 16:56 | NUR ---
DR GARRIDO AT BEDSIDE
[2020-01-03] MEDS ORDERED: OLANZAPINE 10 MG VIAL IM ONE ×2 (17:00→17:04)
[2020-01-03 17:44] LABS: CALCIUM, SERUM 10.1 mg/dL (8.5-10.1); CARBON DIOXIDE 28 mmol/L (21-32); CHLORIDE 99 mmol/L (98-107); CREATININE 1.5 mg/dL (0.6-1.3); GLUCOSE 98 mg/dL (74-106); POTASSIUM 3.6 mmol/L (3.5-5.1); SODIUM SERUM 138 mmol/L (136-145); UREA NITROGEN, BLOOD 25 mg/dL (7-18)
[2020-01-03 17:47] LABS: ALANINE AMINOTRANSFERASE 33 U/L (12-78); ALBUMIN 4.7 g/dL (3.4-5.0); ALCOHOL, BLOOD < 3 mg/dL (0-0); ALKALINE PHOSPHATASE 62 U/L (46-116); ASPARTATE AMINOTRANSFERASE 35 U/L (15-37); BILIRUBIN,DIRECT 0.2 mg/dL (0.0-0.2); BILIRUBIN,TOTAL 0.9 mg/dL (0.2-1.0); TOTAL PROTEIN, SERUM 8.2 g/dL (6.4-8.2)
[2020-01-03 17:48] LABS: ACETAMINOPHEN < 2 ug/ml (10-30); SALICYLATE < 2.8 mg/dL (2.8-20.0)
[2020-01-03 17:56] LABS: BASOPHILS # (AUTO) 0.1 /CMM (0.0-0.2); BASOPHILS % (AUTO) 0.8 % (0.0-2.0); EOSINOPHILS % (AUTO) 0.6 % (0.0-6.0); HEMATOCRIT 47 % (39-51); HEMOGLOBIN 15.9 g/dL (13.5-17.5); LYMPHOCYTES # (AUTO) 2.4 /CMM (0.8-4.8); LYMPHOCYTES % (AUTO) 20.2 % (20.0-44.0); MEAN CORPUSCULAR HGB CONC 34 g/dl (31.0-36.0); MEAN CORPUSCULAR VOLUME 88 fL (80-96); MONOCYTES # (AUTO) 0.8 /CMM (0.1-1.30); NEUTROPHILS # (AUTO) 8.3 /CMM (1.8-8.9); NEUTROPHILS % (AUTO) 71.4 % (43.0-81.0); PLATELET COUNT (AUTO) 144 /CMM (150-450); RED BLOOD CELL COUNT(AUTO) 5.31 MIL/uL (4.5-6.0); WHITE BLOOD COUNT (AUTO) 11.6 K/uL (4.3-11.0)
[2020-01-03 18:03] LABS: APPEARANCE,URINE HAZY (CLEAR); BILIRUBIN,URINE Negative (NEGATIVE); BLOOD, URINE Small Ery/uL (NEGATIVE); COLOR,URINE Brown (YELLOW); KETONES,URINE Negative (NEGATIVE); LEUKOCYTE ESTERASE ,URINE Negative (NEGATIVE); NITRITE, URINE Negative (NEGATIVE); PH,URINE 6.5 (5.0-8.0); PROTEIN,URINE 30 mg/dl (NEGATIVE); UGLUCOSE Negative (NEGATIVE); UROBILINOGEN,URINE 0.2 EU/dL (0.2)
[2020-01-03 18:17] LABS: BACTERIA,URINE None seen /HPF (None Seen); MUCUS,URINE Many /LPF (None Seen); SQUAMOUS EPITHELIAL CELL,UR Few /HPF (None Seen)
--- NOTE | 2020-01-03 19:09 | NUR ---
PATIENT IN BED ASLEEP, EASILY AROUSABLE BY VOICE. HOOKED TO MONITOR. WILL CONTINUE TO MONITOR ACCORDINGLY
--- NOTE | 2020-01-03 19:17 | NUR ---
REPORT GIVEN TO FREIDA ALONSO FOR ADITYA
--- NOTE | 2020-01-03 20:48 | NUR ---
PATIENT IS SLEEPING. EASILY AROUSABLE THROUGH TOUCH AND VERBAL STIMULI. BREATHING EVENLY AND UNLABORED ON ROOM AIR. CONNECTED TO MONITOR. SITTER AT BEDSIDE. BED KEPT AT LOWEST POSITION WITH SIDE RAILS UP FOR SAFETY.
--- NOTE | 2020-01-03 22:58 | NUR ---
Pt accepted to [facility] by Dr Israel. Unit 2 [id number]. # for report [phone]
--- NOTE | 2020-01-03 23:44 | NUR ---
Call the car called for transport. [facility] eta 60-90 minutes.
--- NOTE | 2020-01-03 23:49 | NUR ---
Report given to Mckenzie ALONSO for continuation of care.
--- NOTE | 2020-01-04 01:19 | NUR ---
[facility] at bedside for transport.
[2020-01-04 01:23] VITALS: BP 128/74
== END 2020-01-04 01:50 | disposition short-term general hospital (02) ==
LOC: ER 16:52
DX: R45.851 Suicidal ideations (principal); F15.10 Other stimulant abuse, uncomplicated
CPT/HCPCS: 36415; 80048; 80076; 80305; 80307; 80329; 81001; 85025; 96372; 99285; G0480; J3490; 81000-TC

== ENCOUNTER 2020-01-14 23:18 | Emergency (ER) | payer OTHER ==
[~2020-01-14] VITALS: Ht 175.3 cm; Wt 72.6 kg
--- NOTE | 2020-01-14 23:35 | NUR ---
CALLED FOR TRIAGE , NO ANSWER
--- NOTE | 2020-01-15 00:15 | NUR ---
PT CAME TO THE ED C/O AUDITORY HALLUCINATIONS TELLING HIM TO KILL HIMSELF AND OTHERS. PT LAUGHING HYSTERICALLY, AAOX3, VSS, RESPIRATIONS EVEN AND UNLABORED ON RA W/ NAD NOTED. PT CONNECTED TO THE MONITOR AND POX, CHANGED TO GOWN, BELONGINGS PLACED TO LOCKER, SUICIDE PRECAUTIONS IMPLEMENTED. SITTER AT BEDSIDE FOR SAFETY
[2020-01-15] MEDS ORDERED: OLANZAPINE 5 MG TABLET PO ONE (00:30)
[2020-01-15] MEDS ORDERED: OLANZAPINE 5 MG TABLET ONE (00:33)
[2020-01-15 01:00] LABS: BASOPHILS % (AUTO) 0.7 % (0.0-2.0); EOSINOPHILS % (AUTO) 4.5 % (0.0-6.0); HEMATOCRIT 44 % (39-51); HEMOGLOBIN 15.1 g/dL (13.5-17.5); LYMPHOCYTES # (AUTO) 2.2 /CMM (0.8-4.8); LYMPHOCYTES % (AUTO) 33.8 % (20.0-44.0); MEAN CORPUSCULAR HGB CONC 34 g/dl (31.0-36.0); MEAN CORPUSCULAR VOLUME 88 fL (80-96); MONOCYTES # (AUTO) 0.3 /CMM (0.1-1.30); MONOCYTES % (AUTO) 4.6 % (2.0-12.0); NEUTROPHILS # (AUTO) 3.7 /CMM (1.8-8.9); NEUTROPHILS % (AUTO) 56.4 % (43.0-81.0); PLATELET COUNT (AUTO) 186 /CMM (150-450); WHITE BLOOD COUNT (AUTO) 6.5 K/uL (4.3-11.0)
[2020-01-15 01:14] LABS: ALANINE AMINOTRANSFERASE 35 U/L (12-78); ALBUMIN 4.2 g/dL (3.4-5.0); ALCOHOL, BLOOD 133 mg/dL (0-0); ALKALINE PHOSPHATASE 79 U/L (46-116); ASPARTATE AMINOTRANSFERASE 52 U/L (15-37); BILIRUBIN,DIRECT 0.1 mg/dL (0.0-0.2); BILIRUBIN,TOTAL 0.5 mg/dL (0.2-1.0); CARBON DIOXIDE 33 mmol/L (21-32); CHLORIDE 101 mmol/L (98-107); CREATININE 1.2 mg/dL (0.6-1.3); GLUCOSE 102 mg/dL (74-106); POTASSIUM 3.2 mmol/L (3.5-5.1); SODIUM SERUM 139 mmol/L (136-145); UREA NITROGEN, BLOOD 11 mg/dL (7-18)
[2020-01-15 01:15] LABS: ACETAMINOPHEN < 2 ug/ml (10-30); SALICYLATE 0.7 mg/dL (2.8-20.0)
[2020-01-15 03:29] LABS: APPEARANCE,URINE CLEAR (CLEAR); BILIRUBIN,URINE NEGATIVE (NEGATIVE); BLOOD, URINE NEGATIVE Ery/uL (NEGATIVE); COLOR,URINE YELLOW (YELLOW); KETONES,URINE NEGATIVE (NEGATIVE); LEUKOCYTE ESTERASE ,URINE NEGATIVE (NEGATIVE); NITRITE, URINE NEGATIVE (NEGATIVE); PROTEIN,URINE NEGATIVE (NEGATIVE); UGLUCOSE NEGATIVE (NEGATIVE); UROBILINOGEN,URINE 0.2 EU/dL (0.2)
--- NOTE | 2020-01-15 05:42 | NUR ---
PT RESTING COMFORTABLY IN BED. VSS. NO ACUTE DISTRESS NOTED. SITTER AT BEDSIDE FOR SAFETY
--- NOTE | 2020-01-15 07:20 | NUR ---
ASSUME PT CARE. SLEEPING, EASILY AROUSABLE. VERBALLY RESPONSIVE. 1:1 SITTER AT BEDSIDE.
--- NOTE | 2020-01-15 07:23 | NUR ---
REPORT GIVEN TO GAVIN STEVEN FOR ADITYA
--- NOTE | 2020-01-15 08:37 | NUR ---
HOSPITAL ADMINISTRATOR received a call from ED CRN Karolina stating pt is requesting voluntary psychiatric admission to [facility]. Per MD notes, pt is w-21-nobm-old male brought in by self with complaints of hearing voices telling him to hurt other people. Pt has a history of psychiatric hospitalizations. Pt has a diagnosis of Schizophrenia and Bipolar. TRU conducted chart review and faxed clinicals to [facility] intake dept. TRU contacted [facility] and initiated voluntary psychiatric hospitalization for the pt. Per [facility], they will have beds for the pt.
--- NOTE | 2020-01-15 08:42 | NUR ---
BARREL TURNER received a call from Tate at [facility] informing [facility], they did receive the clinicals on the pt and are awaiting a response back from [facility]. Tate to f/u with [facility].
--- NOTE | 2020-01-15 09:45 | NUR ---
ESCROW OFFICER received a call from Tate at [facility] intake informing SW, pt has been accepted to [facility]. Report needs to be called in at 11:30 to first mate at [phone]. Accepting Dr. Olivas/Dr Brent. French in ED has been informed.
--- NOTE | 2020-01-15 09:53 | NUR ---
PT ACCEPTED IN [facility] AWAITING INSTRUCTIONS. ALSO GIVE REPORT AFTER [phone].
--- NOTE | 2020-01-15 11:49 | NUR ---
TRANSFER INFO PER SAYRA: FOLDER HAND received a call from Tate at [facility] intake informing SW, pt has been accepted to [facility]. Report needs to be called in at 11:30 to ops analyst at [phone]. Accepting Dr. Olivas/Dr Quintana. Manolo in ED has been informed.
--- NOTE | 2020-01-15 11:50 | NUR ---
PT SLEEPING IN BED. VERBALY RESPONSIVE. STILL ACTIVE SI W/ PLAN TO CUT WRIST. SITTER AT BEDSIDE.
--- NOTE | 2020-01-15 12:08 | NUR ---
CALLED CALL THE CAR TRANSPORT, AWAITING CALL BACK WITH ETA Addendum: 01/15/20 at 1233 by FADI RES#[id number]
--- NOTE | 2020-01-15 12:09 | NUR ---
REPORT GIVEN TO UMA AT [facility]. AWAITING TRANSPORT AMBULANCE.
--- NOTE | 2020-01-15 12:33 | NUR ---
NO ETA YET ACCORDING TO [id number]
[2020-01-15 13:24] VITALS: BP 136/84
--- NOTE | 2020-01-15 13:29 | NUR ---
TRASPORTED TO [facility] STABLE CONDITION.
== END 2020-01-15 13:30 ==
LOC: ER 23:20
DX: F29 Unspecified psychosis not due to a substance or known physiological condition (principal); R45.850 Homicidal ideations; F20.9 Schizophrenia, unspecified; F31.9 Bipolar disorder, unspecified
CPT/HCPCS: 36415; 80048; 80076; 80305; 80307; 80329; 81001; 85025; 99285; G0480; 81000-TC

== ENCOUNTER 2020-12-12 23:14 | Emergency (ER) | payer OTHER ==
[~2020-12-12] VITALS: Ht 170.2 cm; Wt 72.6 kg
--- NOTE | 2020-12-12 23:21 | NUR ---
esme [phone]
[2020-12-12] MEDS ORDERED: LORAZEPAM INJ 2 MG/ML VIAL IM ONE (23:30)
[2020-12-12] MEDS ORDERED: LORAZEPAM INJ 2 MG/ML VIAL ONE ×2 (23:31→23:36)
[2020-12-12 23:45] LABS: BASOPHILS % (AUTO) 0.4 % (0.0-2.0); EOSINOPHILS % (AUTO) 0.1 % (0.0-6.0); HEMATOCRIT 48 % (39-51); HEMOGLOBIN 16.5 g/dL (13.5-17.5); LYMPHOCYTES # (AUTO) 1.2 /CMM (0.8-4.8); LYMPHOCYTES % (AUTO) 11.2 % (20.0-44.0); MEAN CORPUSCULAR HGB CONC 34 g/dl (31.0-36.0); MEAN CORPUSCULAR VOLUME 88 fL (80-96); MONOCYTES # (AUTO) 0.8 /CMM (0.1-1.30); NEUTROPHILS # (AUTO) 9.1 /CMM (1.8-8.9); NEUTROPHILS % (AUTO) 81.3 % (43.0-81.0); PLATELET COUNT (AUTO) 151 /CMM (150-450); RED BLOOD CELL COUNT(AUTO) 5.44 MIL/uL (4.5-6.0); WHITE BLOOD COUNT (AUTO) 11.2 K/uL (4.3-11.0)
[2020-12-12 23:57] LABS: ACETAMINOPHEN 0 ug/ml (10-30); ALANINE AMINOTRANSFERASE 33 U/L (12-78); ALBUMIN 4.9 g/dL (3.4-5.0); ALCOHOL, BLOOD < 3 mg/dL (0-0); ALKALINE PHOSPHATASE 70 U/L (46-116); ASPARTATE AMINOTRANSFERASE 33 U/L (15-37); BILIRUBIN,DIRECT 0.3 mg/dL (0.0-0.2); BILIRUBIN,TOTAL 1.2 mg/dL (0.2-1.0); CALCIUM, SERUM 10.1 mg/dL (8.5-10.1); CARBON DIOXIDE 24 mmol/L (21-32); CHLORIDE 98 mmol/L (98-107); CREATININE 1.7 mg/dL (0.6-1.3); GLUCOSE 136 mg/dL (74-106); SODIUM SERUM 139 mmol/L (136-145); TOTAL PROTEIN, SERUM 8.4 g/dL (6.4-8.2); UREA NITROGEN, BLOOD 16 mg/dL (7-18)
[2020-12-12 23:58] LABS: POTASSIUM 2.7 mmol/L (3.5-5.1)
--- NOTE | 2020-12-12 23:58 | NUR ---
per lab, potassium 2.7
[2020-12-13] MEDS ORDERED: POTASSIUM CHLORIDE 10 MEQ/50 ML PREMIXED IVPB FOR PERIPHERAL LINE IV ONE
[2020-12-13] MEDS ORDERED: IV NS 0.9% 1,000 ML BAG IV ONE
[2020-12-13] MEDS ORDERED: LORAZEPAM INJ 2 MG/ML VIAL IM ONE
[2020-12-13] MEDS ORDERED: POTASSIUM CHLORIDE 10 MEQ TABLET.SA ONE (00:05)
[2020-12-13] MEDS ORDERED: POTASSIUM CHLORIDE 20 MEQ TAB.PRT.SR PO ONE ×2 (00:05)
[2020-12-13] MEDS ORDERED: POTASSIUM CL. PREMIX PERIPHER. 200 ML ONE (00:07)
[2020-12-13] MEDS ORDERED: diphenhydrAMINE HCL 50 MG/ML VIAL ONE (00:08)
--- NOTE | 2020-12-13 00:15 | NUR ---
xray at bedside
[2020-12-13] MEDS ORDERED: diphenhydrAMINE HCL 50 MG/ML VIAL IV ONE (00:30)
[2020-12-13] MEDS ORDERED: HALOPERIDOL LACTATE INJ 5 MG/ML VIAL ONE (01:28)
[2020-12-13] MEDS ORDERED: HALOPERIDOL LACTATE INJ 5 MG/ML VIAL IM ONE (01:30)
[2020-12-13] MEDS ORDERED: LIDOCAINE 2% JEL UROJET 10 ML MM ONE (03:12)
--- NOTE | 2020-12-13 07:30 | NUR ---
PT ASSESSED ON BED ASLEEP EASILY AROUSABLE, NOT IN RESPIRATORY DISTRESS, V/S STABLE, KEPT RESTED AND COMFORTABLE. WILL CONTINUE TO MONITOR.
--- NOTE | 2020-12-13 14:15 | NUR ---
GAVE CELLPHONE ETTA, BEST FRIEND, SINCE IT WAS RINGING AND PT WAS SLEEPING. ETTA ATTEMPTS TO WAKE UP PT
--- NOTE | 2020-12-13 14:50 | NUR ---
DR BERTRAND AT BEDSIDE FOR EVAL. PT IS AWAKE, FRIEND AT BEDSIDE. STABLE VITALS.
[2020-12-13 15:33] LABS: CALCIUM, SERUM 8.5 mg/dL (8.5-10.1); CREATININE 1.2 mg/dL (0.6-1.3); POTASSIUM 4.9 mmol/L (3.5-5.1)
--- NOTE | 2020-12-13 15:34 | NUR ---
Patient eloped from facility. Dr Rhoades notified.
[2020-12-13 15:35] VITALS: BP 128/60
== END 2020-12-13 15:35 | disposition left against medical advice (07) ==
LOC: ER 23:18
DX: F15.10 Other stimulant abuse, uncomplicated (principal); E87.6 Hypokalemia; R45.1 Restlessness and agitation; F20.9 Schizophrenia, unspecified; F31.9 Bipolar disorder, unspecified
CPT/HCPCS: 36415 ×2; 71045; 80048 ×2; 80076; 80143; 80320; 84132; 84484; 85025; 93005; 96361; 96365; 96372 ×2; 96375; 99285; J1200; J1630; J2060 ×2; J3480; J3490; G0480

== ENCOUNTER 2022-02-10 21:09 | Emergency (ER) | payer OTHER ==
[~2022-02-10] VITALS: Ht 170.2 cm; Wt 75.7 kg
[2022-02-10 21:33] VITALS: BP 134/82
[2022-02-10 23:05] LABS: BASOPHILS % (AUTO) 0.5 % (0.0-2.0); EOSINOPHILS % (AUTO) 0.1 % (0.0-6.0); HEMATOCRIT 44 % (39-51); HEMOGLOBIN 14.8 g/dL (13.5-17.5); LYMPHOCYTES # (AUTO) 1.5 K/uL (0.8-4.8); LYMPHOCYTES % (AUTO) 17.3 % (20.0-44.0); MEAN CORPUSCULAR HGB CONC 34 g/dl (31.0-36.0); MEAN CORPUSCULAR VOLUME 88 fL (80-96); MONOCYTES # (AUTO) 0.5 K/uL (0.1-1.30); MONOCYTES % (AUTO) 5.9 % (2.0-12.0); NEUTROPHILS # (AUTO) 6.6 K/uL (1.8-8.9); NEUTROPHILS % (AUTO) 76.2 % (43.0-81.0); PLATELET COUNT (AUTO) 170 K/uL (150-450); RED BLOOD CELL COUNT(AUTO) 4.95 MIL/uL (4.5-6.0); WHITE BLOOD COUNT (AUTO) 8.7 K/uL (4.3-11.0)
[2022-02-10 23:22] LABS: ALANINE AMINOTRANSFERASE 61 U/L (12-78); ALBUMIN 4.4 g/dL (3.4-5.0); ALCOHOL, BLOOD < 3 mg/dL (0-0); ALKALINE PHOSPHATASE 54 U/L (46-116); ASPARTATE AMINOTRANSFERASE 27 U/L (15-37); BILIRUBIN,DIRECT 0.1 mg/dL (0.0-0.2); BILIRUBIN,TOTAL 0.5 mg/dL (0.2-1.0); CALCIUM, SERUM 8.9 mg/dL (8.5-10.1); CARBON DIOXIDE 27 mmol/L (21-32); CHLORIDE 105 mmol/L (98-107); CREATININE 1.4 mg/dL (0.6-1.3); GLUCOSE 94 mg/dL (74-106); POTASSIUM 4.4 mmol/L (3.5-5.1); SODIUM SERUM 141 mmol/L (136-145); UREA NITROGEN, BLOOD 14 mg/dL (7-18)
[2022-02-10 23:30] LABS: ACETAMINOPHEN < 2 ug/ml (10-30)
[2022-02-11] MEDS ORDERED: IBUPROFEN 400 MG TABLET ONE (04:19)
[2022-02-11 08:13] LABS: BILIRUBIN,URINE NEGATIVE (NEGATIVE); COLOR,URINE YELLOW (YELLOW); LEUKOCYTE ESTERASE ,URINE NEGATIVE (NEGATIVE); NITRITE, URINE NEGATIVE (NEGATIVE); PROTEIN,URINE 30 mg/dl (NEGATIVE); UGLUCOSE NEGATIVE (NEGATIVE); UROBILINOGEN,URINE 0.2 EU/dL (0.2)
[2022-02-11 08:37] LABS: BACTERIA,URINE Few /HPF (None Seen); MUCUS,URINE Many /LPF (None Seen); SQUAMOUS EPITHELIAL CELL,UR Few /HPF (None Seen)
--- NOTE | 2022-02-11 10:13 | NUR ---
+si "I want to overdose on pills". notified and aware.
[2022-02-11] MEDS ORDERED: LORAZEPAM 1 MG TABLET ONE (13:46)
--- NOTE | 2022-02-11 13:48 | NUR ---
PT AGITATED, LOITERING AROUND, WAS GIVEN ATIVAN BUT WILL NOT RETURN TO HIS BED.
[2022-02-11] MEDS ORDERED: LORAZEPAM 1 MG TABLET PO ONE (14:00)
--- NOTE | 2022-02-11 14:44 | NUR ---
PT HARASSING NURSES AND ERMD. WAS GIVEN MULTIPLE CHANCE TO RETURN TO HIS BED BUT WILL NOT COMPLY. PER DR GUADALUPE, PT IS STABLE FOR DISCHAGE. SECURITY WAS CALLED AND PATIENT WAS ESCORTED OUT.
== END 2022-02-11 14:50 | disposition home or self-care (01) ==
LOC: ER 21:12
DX: F15.10 Other stimulant abuse, uncomplicated (principal); F20.9 Schizophrenia, unspecified; F31.9 Bipolar disorder, unspecified; Z20.822 Contact with and (suspected) exposure to COVID-19; F41.9 Anxiety disorder, unspecified; Z91.19 Patient's noncompliance with other medical treatment and regimen
CPT/HCPCS: 99283; 85025; 80048; 87086; 80076; 81001; 36415; 80143; 80320; 80307; 87426; C9803; G0480

== ENCOUNTER 2022-02-11 15:48 | Emergency (ER) | payer OTHER ==
[~2022-02-11] VITALS: Ht 175.3 cm; Wt 52.2 kg
[2022-02-11 16:23] VITALS: BP 136/88
--- NOTE | 2022-02-11 18:09 | NUR ---
FACESHEET, CLINICALS FAXED TO [facility].
--- NOTE | 2022-02-11 19:53 | NUR ---
PT ACCEPTED AT [facility] UNDER THE CARE OF DR. HUYNH. CALL [phone] UNIT 2 FOR REPORT.
--- NOTE | 2022-02-11 19:57 | NUR ---
[facility] CALLED FOR BLS TO [facility] PER TERESA ETA - 90 MIN
--- NOTE | 2022-02-11 22:00 | NUR ---
REPORT GIVEN TO [facility].
--- NOTE | 2022-02-11 22:37 | NUR ---
REPORT GIVEN TO [facility] UNIT 270 FOR PT TO TRANSFER TO [facility]
== END 2022-02-11 23:03 ==
LOC: ER 15:52
DX: R45.851 Suicidal ideations (principal); F41.9 Anxiety disorder, unspecified; F15.10 Other stimulant abuse, uncomplicated; F20.9 Schizophrenia, unspecified; F31.9 Bipolar disorder, unspecified; F17.200 Nicotine dependence, unspecified, uncomplicated

== ENCOUNTER 2023-01-29 02:10 | Emergency (ER) | payer OTHER ==
[~2023-01-29] VITALS: Ht 175.3 cm; Wt 72.6 kg
[2023-01-29 03:15] VITALS: TEMP 98.2
[2023-01-29 03:23] VITALS: BP 106/74; O2SAT 100
[2023-01-29] MEDS ORDERED: IV NS 0.9% 1,000 ML BAG IV ONE (03:30)
[2023-01-29 05:59] LABS: BASOPHILS % (AUTO) 0.1 % (0.0-2.0); EOSINOPHILS % (AUTO) 0.1 % (0.0-6.0); HEMATOCRIT 46 % (39-51); HEMOGLOBIN 15.5 g/dL (13.5-17.5); LYMPHOCYTES # (AUTO) 1.4 K/uL (0.8-4.8); LYMPHOCYTES % (AUTO) 15.3 % (20.0-44.0); MEAN CORPUSCULAR HEMOGLOBIN 29 PG (26.0-33.0); MEAN CORPUSCULAR HGB CONC 34 g/dl (31.0-36.0); MEAN CORPUSCULAR VOLUME 86 fL (80-96); MONOCYTES # (AUTO) 0.6 K/uL (0.1-1.30); MONOCYTES % (AUTO) 6.8 % (2.0-12.0); NEUTROPHILS # (AUTO) 7.1 K/uL (1.8-8.9); NEUTROPHILS % (AUTO) 77.7 % (43.0-81.0); PLATELET COUNT (AUTO) 168 K/uL (150-450); RED BLOOD CELL COUNT(AUTO) 5.35 MIL/uL (4.5-6.0); WHITE BLOOD COUNT (AUTO) 9.2 K/uL (4.3-11.0)
[2023-01-29 06:06] LABS: CALCIUM, SERUM 9.9 mg/dL (8.5-10.1); CARBON DIOXIDE 25 mmol/L (21-32); CHLORIDE 101 mmol/L (98-107); CREATININE 1.4 mg/dL (0.6-1.3); GLUCOSE 105 mg/dL (74-106); POTASSIUM 4.6 mmol/L (3.5-5.1); SODIUM SERUM 138 mmol/L (136-145); UREA NITROGEN, BLOOD 15 mg/dL (7-18)
[2023-01-29 06:12] LABS: ALANINE AMINOTRANSFERASE 25 U/L (12-78); ALBUMIN 4.4 g/dL (3.4-5.0); ALKALINE PHOSPHATASE 64 U/L (46-116); ASPARTATE AMINOTRANSFERASE 47 U/L (15-37); BILIRUBIN,DIRECT 0.1 mg/dL (0.0-0.2); BILIRUBIN,TOTAL 0.5 mg/dL (0.2-1.0); TOTAL PROTEIN, SERUM 8.6 g/dL (6.4-8.2)
[2023-01-29] MEDS ORDERED: OLANZAPINE 5 MG TABLET ONE (06:26)
[2023-01-29] MEDS ORDERED: OLANZAPINE 5 MG TABLET PO ONE (06:30)
[2023-01-29 06:31] LABS: ACETAMINOPHEN 0 ug/ml (10-30); ALCOHOL, BLOOD < 3 mg/dL (0-10); SALICYLATE < 2.3 mg/dL (2.8-20.0)
[2023-01-29 08:00] LABS: APPEARANCE,URINE CLEAR (CLEAR); BILIRUBIN,URINE NEGATIVE (NEGATIVE); BLOOD, URINE NEGATIVE Ery/uL (NEGATIVE); COLOR,URINE YELLOW (YELLOW); KETONES,URINE 1+ mg/dL (NEGATIVE); LEUKOCYTE ESTERASE ,URINE NEGATIVE (NEGATIVE); NITRITE, URINE NEGATIVE (NEGATIVE); PROTEIN,URINE 1+ mg/dl (NEGATIVE); UGLUCOSE NEGATIVE (NEGATIVE); UROBILINOGEN,URINE 0.2 EU/dL (0.2)
[2023-01-29 08:10] LABS: BARBITURATE, URINE NEGATIVE (NEGATIVE); BENZODIAZEPINE, URINE NEGATIVE (NEGATIVE); CANNABINOID, URINE NEGATIVE (NEGATIVE); COCCAINE, URINE NEGATIVE (NEGATIVE); OPIATE, URINE NEGATIVE (NEGATIVE); PHENCYCLIDINE SCREEN,URINE NEGATIVE (NEGATIVE)
[2023-01-29 08:16] LABS: AMPHETAMINE, URINE POSITIVE (NEGATIVE)
== END 2023-01-29 11:05 ==
LOC: ER 02:14
DX: F15.90 Other stimulant use, unspecified, uncomplicated (principal); R44.1 Visual hallucinations; F31.9 Bipolar disorder, unspecified; F17.200 Nicotine dependence, unspecified, uncomplicated; R19.7 Diarrhea, unspecified; Z20.822 Contact with and (suspected) exposure to COVID-19
CPT/HCPCS: 99285; 96360; 85025; 80048; 80076; 87426; 81003; 36415; 80143; 80320; 80307; J7030; C9803; G0480

== ENCOUNTER 2023-03-30 01:59 | Emergency (ER) | payer OTHER ==
[~2023-03-30] VITALS: Ht 175.3 cm; Wt 73.0 kg
[2023-03-30] MEDS ORDERED: IBUPROFEN 600 MG TABLET ONE (03:01)
[2023-03-30 03:11] LABS: ALANINE AMINOTRANSFERASE 44 U/L (12-78); ALBUMIN 4.1 g/dL (3.4-5.0); ALKALINE PHOSPHATASE 67 U/L (46-116); ASPARTATE AMINOTRANSFERASE 26 U/L (15-37); BILIRUBIN,DIRECT 0.1 mg/dL (0.0-0.2); BILIRUBIN,TOTAL 0.4 mg/dL (0.2-1.0); CALCIUM, SERUM 9.5 mg/dL (8.5-10.1); CARBON DIOXIDE 30 mmol/L (21-32); CHLORIDE 101 mmol/L (98-107); CREATININE 1.2 mg/dL (0.6-1.3); GLUCOSE 101 mg/dL (74-106); POTASSIUM 3.7 mmol/L (3.5-5.1); SALICYLATE 3.2 mg/dL (2.8-20.0); SODIUM SERUM 139 mmol/L (136-145); TOTAL PROTEIN, SERUM 7.7 g/dL (6.4-8.2); UREA NITROGEN, BLOOD 14 mg/dL (7-18)
[2023-03-30 03:20] LABS: ACETAMINOPHEN <10 ug/ml (10-30); ALCOHOL, BLOOD < 3 mg/dL (0-10)
[2023-03-30 03:23] LABS: BASOPHILS % (AUTO) 0.4 % (0.0-2.0); EOSINOPHILS # (AUTO) 0.1 K/uL (0.0-0.7); EOSINOPHILS % (AUTO) 0.7 % (0.0-6.0); HEMATOCRIT 41 % (39-51); HEMOGLOBIN 13.5 g/dL (13.5-17.5); LYMPHOCYTES % (AUTO) 26.3 % (20.0-44.0); MEAN CORPUSCULAR HEMOGLOBIN 28 PG (26.0-33.0); MEAN CORPUSCULAR HGB CONC 33 g/dl (31.0-36.0); MEAN CORPUSCULAR VOLUME 85 fL (80-96); MONOCYTES # (AUTO) 0.4 K/uL (0.1-1.30); MONOCYTES % (AUTO) 5.9 % (2.0-12.0); NEUTROPHILS % (AUTO) 66.7 % (43.0-81.0); PLATELET COUNT (AUTO) 149 K/uL (150-450); RED BLOOD CELL COUNT(AUTO) 4.83 MIL/uL (4.5-6.0); RED CELL DISTRIBUTION WIDTH 14.1 % (11.5-15.0); WHITE BLOOD COUNT (AUTO) 7.5 K/uL (4.3-11.0)
[2023-03-30] MEDS ORDERED: IBUPROFEN 600 MG TABLET PO ONE (03:30)
[2023-03-30 03:45] LABS: APPEARANCE,URINE CLEAR (CLEAR); BILIRUBIN,URINE NEGATIVE (NEGATIVE); BLOOD, URINE TRACE-INTA Ery/uL (NEGATIVE); COLOR,URINE YELLOW (YELLOW); KETONES,URINE NEGATIVE (NEGATIVE); LEUKOCYTE ESTERASE ,URINE NEGATIVE (NEGATIVE); NITRITE, URINE NEGATIVE (NEGATIVE); PH,URINE 7.5 (5.0-8.0); PROTEIN,URINE NEGATIVE (NEGATIVE); UGLUCOSE NEGATIVE (NEGATIVE); UROBILINOGEN,URINE 0.2 EU/dL (0.2)
[2023-03-30 04:07] LABS: BARBITURATE, URINE NEGATIVE (NEGATIVE); BENZODIAZEPINE, URINE NEGATIVE (NEGATIVE); CANNABINOID, URINE NEGATIVE (NEGATIVE); COCCAINE, URINE NEGATIVE (NEGATIVE); OPIATE, URINE NEGATIVE (NEGATIVE); PHENCYCLIDINE SCREEN,URINE NEGATIVE (NEGATIVE)
[2023-03-30 04:08] LABS: ADD URINE CULTURE NO; BACTERIA,URINE None seen /HPF (None Seen); MUCUS,URINE Moderate /LPF (None Seen); SQUAMOUS EPITHELIAL CELL,UR 0-2 /HPF (None Seen); WBC,URINE 0-2 /HPF (0-3)
[2023-03-30 04:12] LABS: AMPHETAMINE, URINE POSITIVE (NEGATIVE)
[2023-03-30 06:28] VITALS: TEMP 98
[2023-03-30 07:28] VITALS: BP 149/91; O2SAT 100
== END 2023-03-30 07:49 ==
LOC: ER 02:02
DX: R07.89 Other chest pain (principal); F31.9 Bipolar disorder, unspecified; Z20.822 Contact with and (suspected) exposure to COVID-19
CPT/HCPCS: 99285; 93005; 71045; 85025; 80048; 80076; 81001; 36415; 87426; 80143; 80320; 80307; C9803; G0480

== ENCOUNTER 2024-01-11 07:12 | Emergency (ER) | payer MEDICAID, OTHER ==
[~2024-01-11] VITALS: Ht 175.3 cm; Wt 68.0 kg
[2024-01-11] MEDS ORDERED: LORAZEPAM 1 MG TABLET ONE (07:27)
[2024-01-11] MEDS: LORAZEPAM 1 MG TABLET PO ONE (07:30)
[2024-01-11] MEDS ORDERED: OLANZAPINE 5 MG TABLET ONE (08:17)
[2024-01-11] MEDS: OLANZAPINE 5 MG TABLET PO ONE (08:19)
[2024-01-11] MEDS ORDERED: NALO4SPR BNOSTRILS (08:58)
[2024-01-11 09:21] LABS: AMPHETAMINE, URINE POSITIVE (NEGATIVE); BARBITURATE, URINE NEGATIVE (NEGATIVE); BENZODIAZEPINE, URINE NEGATIVE (NEGATIVE); COCCAINE, URINE NEGATIVE (NEGATIVE); OPIATE, URINE NEGATIVE (NEGATIVE); PHENCYCLIDINE SCREEN,URINE NEGATIVE (NEGATIVE)
[2024-01-11 09:26] LABS: CANNABINOID, URINE POSITIVE (NEGATIVE)
[2024-01-11 09:49] LABS: BASOPHILS # (AUTO) 0.1 K/uL (0.0-0.2); BASOPHILS % (AUTO) 0.5 % (0.0-2.0); HEMATOCRIT 47 % (39-51); HEMOGLOBIN 15.5 g/dL (13.5-17.5); LYMPHOCYTES % (AUTO) 14.3 % (20.0-44.0); MEAN CORPUSCULAR HEMOGLOBIN 28 PG (26.0-33.0); MEAN CORPUSCULAR HGB CONC 33 g/dl (31.0-36.0); MEAN CORPUSCULAR VOLUME 84 fL (80-96); MONOCYTES # (AUTO) 0.7 K/uL (0.1-1.30); MONOCYTES % (AUTO) 4.9 % (2.0-12.0); NEUTROPHILS # (AUTO) 11.2 K/uL (1.8-8.9); NEUTROPHILS % (AUTO) 80.3 % (43.0-81.0); PLATELET COUNT (AUTO) 179 K/uL (150-450); RED BLOOD CELL COUNT(AUTO) 5.54 MIL/uL (4.5-6.0)
[2024-01-11 09:59] LABS: CALCIUM, SERUM 9.8 mg/dL (8.5-10.1); CARBON DIOXIDE 27 mmol/L (21-32); CHLORIDE 100 mmol/L (98-107); CREATININE 1.7 mg/dL (0.6-1.3); GLUCOSE 116 mg/dL (74-106); POTASSIUM 4.2 mmol/L (3.5-5.1); SODIUM SERUM 137 mmol/L (136-145); UREA NITROGEN, BLOOD 24 mg/dL (7-18)
[2024-01-11 10:05] LABS: ACETAMINOPHEN <10 ug/ml (10-30); ALANINE AMINOTRANSFERASE 47 U/L (12-78); ALBUMIN 4.8 g/dL (3.4-5.0); ALCOHOL, BLOOD 11 mg/dL (0-10); ALKALINE PHOSPHATASE 73 U/L (46-116); ASPARTATE AMINOTRANSFERASE 48 U/L (15-37); BILIRUBIN,DIRECT 0.2 mg/dL (0.0-0.2); BILIRUBIN,TOTAL 0.8 mg/dL (0.2-1.0); SALICYLATE 0.2 mg/dL (2.8-20.0); TOTAL PROTEIN, SERUM 8.7 g/dL (6.4-8.2)
[2024-01-11 16:40] VITALS: BP 145/81; TEMP 98; O2SAT 97
== END 2024-01-11 16:40 | disposition home or self-care (01) ==
LOC: ER 07:14
DX: F41.9 Anxiety disorder, unspecified (principal); F22 Delusional disorders; F15.10 Other stimulant abuse, uncomplicated; F12.10 Cannabis abuse, uncomplicated; F20.9 Schizophrenia, unspecified; F31.9 Bipolar disorder, unspecified; Z60.2 Problems related to living alone; Z20.822 Contact with and (suspected) exposure to COVID-19
CPT/HCPCS: 36415; 80048-TC; 80076-TC; 85025-TC; 98960; G0480

== ENCOUNTER 2024-12-24 10:06 | Emergency (ER) | payer MEDICAID, OTHER ==
[~2024-12-24] VITALS: Ht 170.2 cm; Wt 65.4 kg
[~2024-12-24 10:06] MED LIST changes: -LORAZEPAM 1 MG TABLET ONE; -LORAZEPAM 1 MG TABLET PO ONE; +NALO4SPR BNOSTRILS
[2024-12-24 10:38] LABS: BASOPHILS % (AUTO) 0.4 % (0.0-2.0); EOSINOPHILS % (AUTO) 0.1 % (0.0-6.0); HEMATOCRIT 45 % (39-51); HEMOGLOBIN 14.9 g/dL (13.5-17.5); LYMPHOCYTES # (AUTO) 1.5 K/uL (0.8-4.8); LYMPHOCYTES % (AUTO) 14.9 % (20.0-44.0); MEAN CORPUSCULAR HEMOGLOBIN 29 PG (26.0-33.0); MEAN CORPUSCULAR HGB CONC 33 g/dl (31.0-36.0); MEAN CORPUSCULAR VOLUME 86 fL (80-96); MONOCYTES # (AUTO) 0.5 K/uL (0.1-1.30); MONOCYTES % (AUTO) 4.7 % (2.0-12.0); NEUTROPHILS # (AUTO) 8.2 K/uL (1.8-8.9); NEUTROPHILS % (AUTO) 79.9 % (43.0-81.0); PLATELET COUNT (AUTO) 157 K/uL (150-450); RED BLOOD CELL COUNT(AUTO) 5.21 MIL/uL (4.5-6.0); RED CELL DISTRIBUTION WIDTH 13.9 % (11.5-15.0); WHITE BLOOD COUNT (AUTO) 10.3 K/uL (4.3-11.0)
[2024-12-24] MEDS: ASPIRIN 325 MG TABLET PO ONE (10:38)
[2024-12-24] MEDS ORDERED: NITROGLYCERIN 0.4 MG/TAB BOTTLE ONE (10:39)
[2024-12-24] MEDS: NITROGLYCERIN 0.4 MG/TAB BOTTLE SL ONE (10:43)
[2024-12-24 10:46] LABS: CALCIUM, SERUM 9.2 mg/dL (8.5-10.1); CARBON DIOXIDE 23 mmol/L (21-32); CHLORIDE 107 mmol/L (98-107); CREATININE 1.5 mg/dL (0.6-1.3); GLUCOSE 99 mg/dL (74-106); POTASSIUM 3.5 mmol/L (3.5-5.1); SODIUM SERUM 146 mmol/L (136-145); UREA NITROGEN, BLOOD 15 mg/dL (7-18)
[2024-12-24 11:01] LABS: NT-PRO BNP 192 pg/mL (0-125)
[2024-12-24 11:22] LABS: ACETAMINOPHEN <10 ug/ml (10-30); ALANINE AMINOTRANSFERASE 28 U/L (12-78); ALBUMIN 4.5 g/dL (3.4-5.0); ALCOHOL, BLOOD < 3 mg/dL (0-10); ALKALINE PHOSPHATASE 68 U/L (46-116); ASPARTATE AMINOTRANSFERASE 28 U/L (15-37); BILIRUBIN,DIRECT 0.1 mg/dL (0.0-0.2); BILIRUBIN,TOTAL 0.5 mg/dL (0.2-1.0); SALICYLATE 2.2 mg/dL (2.8-20.0); TOTAL PROTEIN, SERUM 8.3 g/dL (6.4-8.2)
[2024-12-24] MEDS ORDERED: METOPROLOL TARTRATE INJ 5 MG/5 ML AMPUL ONE (11:31)
[2024-12-24] MEDS ORDERED: METOPROLOL SUCCINATE 25 MG TAB.SR.24H ONE (11:31)
[2024-12-24] MEDS ORDERED: KETOROLAC TROMETHAMINE 15 MG/ML VIAL ONE (11:31)
[2024-12-24] MEDS: KETOROLAC TROMETHAMINE 15 MG/ML VIAL IV ONE (11:42)
[2024-12-24] MEDS: METOPROLOL TARTRATE INJ 5 MG/5 ML AMPUL IV ONE (11:42)
[2024-12-24] MEDS: METOPROLOL SUCCINATE 25 MG TAB.SR.24H PO SCH (11:43)
[2024-12-24] MEDS ORDERED: LORAZEPAM 0.5 MG TABLET ONE (13:31)
[2024-12-24] MEDS: LORAZEPAM 1 MG TABLET PO ONE (13:35)
[2024-12-24 14:08] VITALS: BP 143/78; TEMP 98.5; O2SAT 98
== END 2024-12-24 14:00 | disposition home or self-care (01) ==
LOC: ER 10:08
DX: R07.89 Other chest pain (principal); F15.10 Other stimulant abuse, uncomplicated; F41.9 Anxiety disorder, unspecified; I50.9 Heart failure, unspecified; R00.2 Palpitations; Z20.822 Contact with and (suspected) exposure to COVID-19; Z60.2 Problems related to living alone; Z79.899 Other long term (current) drug therapy
CPT/HCPCS: 99285; 96374; 96375; 93005; 71045; 85025; 80048; 80076; 36415; 84484 ×2; 83880; 87426; 80143; 80320; J3490; J1885; G0480

== ENCOUNTER 2024-12-24 15:30 | Emergency (ER) | payer MEDICAID ==
[~2024-12-24] VITALS: Ht 154.9 cm; Wt 72.6 kg
[2024-12-24 16:01] LABS: AMPHETAMINE, URINE POSITIVE (NEGATIVE); BARBITURATE, URINE NEGATIVE (NEGATIVE); BENZODIAZEPINE, URINE NEGATIVE (NEGATIVE); COCCAINE, URINE NEGATIVE (NEGATIVE); OPIATE, URINE NEGATIVE (NEGATIVE); PHENCYCLIDINE SCREEN,URINE NEGATIVE (NEGATIVE)
[2024-12-24 16:02] LABS: CANNABINOID, URINE POSITIVE (NEGATIVE)
[2024-12-24] MEDS ORDERED: LORAZEPAM 1 MG TABLET ONE (16:11)
[2024-12-24] MEDS: LORAZEPAM 1 MG TABLET PO ONE (16:13)
[2024-12-24 21:55] VITALS: BP 148/87; TEMP 98.1; O2SAT 98
== END 2024-12-24 22:36 | disposition home or self-care (01) ==
LOC: ER 15:34
DX: F15.10 Other stimulant abuse, uncomplicated (principal); R00.2 Palpitations; R07.9 Chest pain, unspecified; F41.9 Anxiety disorder, unspecified; F17.200 Nicotine dependence, unspecified, uncomplicated; Z60.2 Problems related to living alone; Z86.59 Personal history of other mental and behavioral disorders

== ENCOUNTER 2025-01-01 04:57 | Emergency (ER) | payer MEDICAID ==
[~2025-01-01] VITALS: Ht 170.2 cm; Wt 76.2 kg
[2025-01-01] MEDS ORDERED: METOPROLOL SUCCINATE 25 MG TAB.SR.24H ONE (06:13)
[2025-01-01] MEDS ORDERED: METOPROLOL TARTRATE INJ 5 MG/5 ML AMPUL ONE (06:13)
[2025-01-01 06:18] LABS: PLATELET COUNT (AUTO) 163 K/uL (150-450); RED BLOOD CELL COUNT(AUTO) 5.69 MIL/uL (4.5-6.0); RED CELL DISTRIBUTION WIDTH 13.5 % (11.5-15.0); WHITE BLOOD COUNT (AUTO) 10.4 K/uL (4.3-11.0)
[2025-01-01] MEDS: METOPROLOL TARTRATE INJ 5 MG/5 ML AMPUL IV ONE (06:22)
[2025-01-01] MEDS: METOPROLOL SUCCINATE 50 MG TAB.SR.24H PO SCH (06:22)
[2025-01-01 06:28] LABS: CALCIUM, SERUM 9.6 mg/dL (8.5-10.1); CREATININE 1.2 mg/dL (0.6-1.3); SODIUM SERUM 142.0 mmol/L (136-145); UREA NITROGEN, BLOOD 17.0 mg/dL (7-18)
[2025-01-01 06:34] LABS: ASPARTATE AMINOTRANSFERASE 23.0 U/L (15-37); TOTAL PROTEIN, SERUM 8.5 g/dL (6.4-8.2)
[2025-01-01 07:42] VITALS: BP 143/95; TEMP 98.2; O2SAT 97
== END 2025-01-01 07:42 | disposition home or self-care (01) ==
LOC: ER 05:00
DX: F41.9 Anxiety disorder, unspecified (principal); F17.200 Nicotine dependence, unspecified, uncomplicated; F19.10 Other psychoactive substance abuse, uncomplicated; R00.2 Palpitations; R07.9 Chest pain, unspecified; R06.02 Shortness of breath; Z60.2 Problems related to living alone; Z86.59 Personal history of other mental and behavioral disorders
CPT/HCPCS: 99285; 96374; 71045; 93005; 85025; 36415; 80053; 84484; J3490

== ENCOUNTER 2025-05-06 03:31 | Emergency (ER) | payer MEDICAID, OTHER ==
[~2025-05-06] VITALS: Ht 175.3 cm; Wt 72.6 kg
[2025-05-06 04:12] LABS: PLATELET COUNT (AUTO) 166 K/uL (150-450); RED BLOOD CELL COUNT(AUTO) 5.26 MIL/uL (4.5-6.0); RED CELL DISTRIBUTION WIDTH 13.2 % (11.5-15.0); WHITE BLOOD COUNT (AUTO) 8.2 K/uL (4.3-11.0)
[2025-05-06 04:19] LABS: CALCIUM, SERUM 9.1 mg/dL (8.5-10.1); CREATININE 1.2 mg/dL (0.6-1.3); SODIUM SERUM 141 mmol/L (136-145); UREA NITROGEN, BLOOD 18 mg/dL (7-18)
[2025-05-06 04:25] LABS: ASPARTATE AMINOTRANSFERASE 22 U/L (15-37); TOTAL PROTEIN, SERUM 8.3 g/dL (6.4-8.2)
[2025-05-06] MEDS ORDERED: QUETIAPINE FUMARATE 100 MG TABLET ONE (04:35)
[2025-05-06] MEDS ORDERED: LORAZEPAM 1 MG TABLET ONE ×2 (04:36→05:20)
[2025-05-06] MEDS: QUETIAPINE FUMARATE 100 MG TABLET PO STA (04:36)
[2025-05-06] MEDS: LORAZEPAM 1 MG TABLET PO STA (04:36)
[2025-05-06] MEDS: LORAZEPAM 1 MG TABLET PO ONE (05:21)
[2025-05-06] MEDS ORDERED: ACETAMINOPHEN ES 500 MG TABLET ONE (05:42)
[2025-05-06 05:43] LABS: APPEARANCE,URINE CLEAR (CLEAR); BLOOD, URINE TRACE-INTA Ery/uL (NEGATIVE); LEUKOCYTE ESTERASE ,URINE NEGATIVE (NEGATIVE); NITRITE, URINE NEGATIVE (NEGATIVE); UGLUCOSE NEGATIVE (NEGATIVE)
[2025-05-06] MEDS: ACETAMINOPHEN ES 500 MG TABLET PO ONE (05:43)
[2025-05-06 05:49] LABS: AMPHETAMINE, URINE POSITIVE (NEGATIVE); BARBITURATE, URINE NEGATIVE (NEGATIVE); BENZODIAZEPINE, URINE NEGATIVE (NEGATIVE); CANNABINOID, URINE NEGATIVE (NEGATIVE); COCCAINE, URINE NEGATIVE (NEGATIVE); OPIATE, URINE NEGATIVE (NEGATIVE)
[2025-05-06 05:53] LABS: ADD URINE CULTURE YES; SQUAMOUS EPITHELIAL CELL,UR Many /HPF (None Seen)
[2025-05-06 13:51] VITALS: BP 132/78; TEMP 98.7; O2SAT 95
== END 2025-05-06 13:30 ==
LOC: ER 03:36
DX: Z02.89 Encounter for other administrative examinations (principal); F20.9 Schizophrenia, unspecified; F31.9 Bipolar disorder, unspecified; F15.90 Other stimulant use, unspecified, uncomplicated; F17.200 Nicotine dependence, unspecified, uncomplicated; Z20.822 Contact with and (suspected) exposure to COVID-19; Z79.899 Other long term (current) drug therapy; Z60.2 Problems related to living alone
CPT/HCPCS: 36415; 80048-TC; 80076-TC; 81001; 85025-TC; 87086-TC; G0480